=== PATIENT | male | born 1950 | race African-American/Black ===

== ENCOUNTER 2016-12-31 10:59 | Day surgery (SDC) | payer MEDICARE, OTHER ==
[~2016-12-31 10:59] MED LIST: KETOROLAC TROMETHAMINE 0.45% 4 DROP/0.4 ML DROPERETTE OD PRN
[2016-12-31] MEDS ORDERED: LIDOCAINE 1% INJ-PF (10 MG/ML) 30 ML SDV ONE (11:19)
[2016-12-31] MEDS ORDERED: PHENYLEPHRINE/KETOROLAC 1%-0.3% 4 ML VIAL ONE (11:20)
[2016-12-31] MEDS ORDERED: CHONDR SU A NA/HYALUR INTRAOC KIT (SURGICARE) ONE (11:20)
[2016-12-31] MEDS: TROPICAMIDE 1% OPH SOLN 3 ML OD PRN ×3 (11:51→12:12)
[2016-12-31] MEDS: CYCLOPENTOLATE 0.2%/PHENYLEPHRINE 1% OPH SOLN 2 ML OD PRN ×3 (11:51→12:12)
[2016-12-31] MEDS: BESIFLOXACIN HCL 0.6% OPH SUSP 5 ML BOTTLE OD PRN ×4 (11:51→13:23)
[2016-12-31] MEDS: TETRACAINE HCL 0.5% OPH SOLN 2 ML OD PRN ×3 (11:52→12:34)
[2016-12-31] MEDS ORDERED: LIDOCAINE 0.5% INJ-PF (5 MG/ML) 50 ML SDV ONE (11:55)
[2016-12-31] MEDS ORDERED: MIDAZOLAM 2 MG/2 ML INJ ONE (12:03)
[2016-12-31] MEDS ORDERED: CHONDR SU A NA/HYALUR SOD 0.5 ML DISP.SYRIN ONE (12:57)
--- NOTE | 2016-12-31 16:43 | [facility] DISCHARGE SUMMARY E ---
[facility] Discharge Summary NAME: PRISCILA PUTNAM AGE: 66Y ADMITTED: 12/31/2016 DISCHARGED: 12/31/2016 HOSPITAL COURSE: This is a 66-year-old male who underwent complex cataract extraction with the use of a Malyugin ring of the right eye. DIAGNOSES: 1. Cataract, right eye. 2. Pupil miosis of the right eye. INDICATIONS: The patient underwent surgery because he was having trouble reading small print. DISCHARGE INSTRUCTIONS: He is to be on a regular diet. No bending at his waist. No heavy lifting. He should use his Besivance, Ilevro, and Durezol at 3 p.m. and 8 p.m. and sleep with a rigid shield. I will see him for his 1 day postoperative tomorrow. DICTATING PHYSICIAN: DEBBY CUNNINGHAM M.D. [id number] PHY#: [id number] ID: [id number] JOB#: [id number] ACCT: [id number] cc:DEBBY CUNNINGHAM M.D. >
--- NOTE | 2016-12-31 16:43 | [facility] OPERATIVE REPORT E ---
[facility] NAME: PRISCILA PUTNAM AGE: 66Y DATE OF SURGERY: 12/31/2016 ROOM: PREOPERATIVE DIAGNOSES: 1. Cataract, right eye. 2. Pupil miosis of the right eye. POSTOPERATIVE DIAGNOSES: 1. Cataract, right eye. 2. Pupil miosis of the right eye. OPERATION: Complex cataract extraction with use of a Malyugin ring due to a very miotic pupil. SURGEON: DEBBY CUNNINGHAM M.D. ANESTHESIA: Topical. PROCEDURE: After obtaining appropriate consent, the patient's right eye was prepped and draped in sterile fashion as well as the surgeon in a sterile manner and cataract surgery was started. First a paracentesis blade was used to make a small side-port incision. Viscoelastic was used to inflate the anterior chamber. Next a 2.4 mm incision was made with the paracentesis blade. A continuous capsulorrhexis incision was made using a cystotome and Utrata forceps. Following this hydrodissection was carried out to make the lens fully loose and mobile and it was rotated 90 degrees. Following this, a zslcxt-wut-okknpov technique was used to phacoemulsify the lens with a CDE of 4.56. The remaining cortex was removed with irrigation/aspiration. Provisc was instilled into the capsular bag to inflate the bag. A SN60WF, 22.5 diopter lens was placed. The remaining viscoelastic material was removed with irrigation/aspiration. Following this, a 10-0 nylon suture was used to close the incision and it was found to be watertight. Vigamox was instilled in the eye and a protective shield was placed over the eye. The patient returned to the postoperative recovery in stable condition. Prior to making the capsulorrhexis, a Malyugin ring was inserted due to a very miotic pupil. This was removed at the end of the case. DICTATING PHYSICIAN: DEBBY CUNNINGHAM M.D. [id number] PHY#: [id number] ID: [id number] JOB#: [id number] ACCT: [id number] cc:DEBBY CUNNINGHAM M.D. >
== END 2016-12-31 14:20 | disposition home or self-care (01) ==
LOC: SC 10:59
PROVIDERS: ATTEND Internal Medicine
PROC: 08RJ3JZ Replacement of Right Lens with Synthetic Substitute, Percutaneous Approach (ICD-10-PCS; principal; 2016-12-31 12:30)
DX: H25.813 Combined forms of age-related cataract, bilateral (principal); H57.03 Miosis; H40.1132 Primary open-angle glaucoma, bilateral, moderate stage; I10 Essential (primary) hypertension; K21.9 Gastro-esophageal reflux disease without esophagitis; G47.30 Sleep apnea, unspecified; Z79.82 Long term (current) use of aspirin
CPT/HCPCS: 66982; V2632; J2250; J3490 ×4; A9270; C9447; 142